=== PATIENT | male | born 1985 | race Caucasian/White ===

== ENCOUNTER 2023-01-02 15:22 | Emergency (ER) | payer OTHER, SELFPAY ==
--- NOTE | ~2023-01-02 | CT_ITS ---
EXAMINATION: CT HEAD WITHOUT CONTRAST CLINICAL INFORMATION: Left-sided headache COMPARISON: None TECHNIQUE: Imaging was performed from the skull base to vertex without intravenous administration of contrast. This CT examination was performed using dose optimization techniques as appropriate, variously including the following: *Automated exposure control *Adjustment of mA and/or kV according to patient size (this includes techniques or standardized protocols for targeted exams where dose is matched to indication/reason for exam; i.e. extremities or head) *Use of iterative reconstruction technique Total exam dose length product: 631 mGy-cm FINDINGS: No intra or extra-axial fluid collection, hemorrhage, or mass. No ventriculomegaly. No midline shift or herniation. Basal cisterns are patent. Fletcher-white matter differentiation is maintained. No territorial encephalomalacia. No significant volume loss. There is no abnormal attenuation within the brain parenchyma. No calvarial fracture or soft tissue abnormality. The mastoid air cells and visualized portions of the paranasal sinuses are well aerated. CT/CT head/brain wo IV con IMPRESSION: 1. No acute intracranial pathology.
--- NOTE | ~2023-01-02 | XR_ITS ---
EXAMINATION: XR CHEST CLINICAL INFORMATION: Left-sided chest pain COMPARISON: None TECHNIQUE: 2 views of the chest were obtained. FINDINGS: The lungs are clear. No airspace consolidation, pleural effusion, or pneumothorax. The cardiomediastinal silhouette is within normal limits. No acute osseous injury. XR/XR chest 2V IMPRESSION: No acute pulmonary process.
--- NOTE | 2023-01-02 15:32 | ECG_ITS ---
Test Reason : CHEST PAIN Blood Pressure : / mmHG Vent. Rate : 073 BPM Atrial Rate : 073 BPM P-R Int : 162 ms QRS Dur : 086 ms QT Int : 376 ms P-R-T Axes : 059 083 060 degrees QTc Int : 414 ms Normal sinus rhythm Nonspecific ST elevation anterior leads, possible early repolarization Borderline EKG No previous ECGs available Referred By: Hanna Segovia Electronically Signed By:RUBY DEE
[2023-01-02 15:45] VITALS: BP 156/88; PULSE 80; RESP 16; TEMP 36.7; O2SAT 97; BMI 25.8
--- NOTE | 2023-01-02 15:45 | ED_ITS ---
HPI - Chest Pain General Chief Complaint: General Medical Stated Complaint: chest pain x3 weeks, headache Time Seen by Provider: 01/02/23 17:32 Source: patient Mode of arrival: ambulatory Limitations: no limitations History of Present Illness HPI narrative: 37 yo male with no medical history, active smoker presents to the ER for evaluation of intermittent, non-radiating chest tightness on the left side for the last 3 weeks. He states the pain comes and goes, mostly in the left upper chest and sometimes the back. 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 Today while lifting a tote he had acute onset of left sided headache while at work. Has since improved significantly but not completely r esolved. No weakness, numbness, tingling. No SOB. MD complaint: chest pain and other (headache) Onset (ago): week(s) Timing of current episode: episodic Prior episodes: Yes Onset: during rest and during exertion Pain location: left chest Pain radiation: back Severity: moderate Quality: aching Relieving factors: nothing Exacerbating factors: nothing Treatment prior to arrival: none Risk Factors Coronary artery disease risk factors: smoking history Thoracic aortic dissection risk factors: none Related Data Allergies Allergy/AdvReac Type Severity Reaction Status Date / Time kiwi [KIWI] Allergy Severe ANAPHYLAXIS Unverified 01/02/23 15:54 kiwi Allergy Unknown Anaphylaxis Uncoded 01/02/23 15:54 Review of Systems Review of Systems: Yes all other systems are reviewed and are negative [facility] Family History Family History (Updated 09/28/20 @ 13:21 by Lyndsay Diaz, RMA, OCCUPATIONAL HEALTH NURSE) Father No problems noted. Mother COPD (chronic obstructive pulmonary disease) CVD (cardiovascular disease) Maternal Grandfather Throat cancer Smoker ETOH abuse Maternal Grandmother Cancer Paternal Grandfather Unknown family medical history Paternal Grandmother Unknown family medical history Brother No problems noted. Brother No problems noted. Sister No problems noted. Social History Social History Advance Directives: No Advance Directives Information Provided: No Physical Exam Vital Signs: Vital Signs: Last Vital Signs Temp 98.1 F 01/02/23 15:45 Pulse 80 01/02/23 15:45 Resp 16 01/02/23 15:45 BP 156/88 H 01/02/23 15:45 Pulse Ox 97 01/02/23 15:45 O2 Del Method 01/02/23 15:45 BMI result Body Mass Index 25.8 Appearance: Alert. Oriented X3. No acute distress. Eyes: Pupils equal, round and reactive to light. ENT: Pharynx normal. Neck: Normal inspection. Neck supple. CVS: Normal heart rate and rhythm. Pulses normal. Respiratory: No respiratory distress. Breath sounds normal. Skin: Skin warm and dry. Normal skin color. Normal skin turgor. No rashes. Extremities: No lower extremity edema. Neuro: Oriented X 3. No motor deficit. No sensory deficit. Course Course Course Narrative: 37 yo male with no medical problems, active smoker presents to the ER for evaluation of intermittent left sided chest pressures for the last few weeks, increasing frequency. Developed acute onset of sharp left sided headache when lifting today, described as the worse headache of his life. Not as intense now but still having headache on the left side. HR 80's, SPO2 98% with SBP 150s, no known hx. Will get EKG, labs, and CT head for further evaluation. Reevaluation(s) Reevaluation #1: Workup is unremarkable. Wants to go home. Stable for d/c - encouraged to follow up with PCP. Medical Decision Making Differential Diagnosis Differential Diagnoses: The differential diagnosis associated with the presentation includes muscular chest pain, atypical chest pain, PNA, PTX, ACS, PE doubt SAH/ICH Lab Data MDM Lab Attestation statement: I reviewed the patient's lab results. unremarkable 01/02/23 15:59 01/02/23 15:59 Labs: Lab Results 01/02/23 01/02/23 01/02/23 Range/Units 15:59 15:59 15:59 WBC 9.8 (4.8-10.8) X10*3/uL RBC 4.68 (4.60-5.80) X10*6/uL Hgb 15.3 (14.0-18.0) g/dl Hct 43.8 (42.0-52.0) % MCV 93.6 (80.0-98.0) fL MCH 32.7 (27.0-33.0) pg MCHC 34.9 (31.0-36.0) g/dl RDW 11.7 (11.0-16.0) % Plt Count 183 (160-400) X10*3/uL MPV 10.6 (9.4-12.4) fL Immature Gran % (Auto) 0.3 (0.0-0.4) % Neut % (Auto) 63.4 (45-73) % Lymph % (Auto) 28.8 (20-40) % [place] % (Auto) 5.6 (2-11) % Eos % (Auto) 1.2 (0-4) % Baso % (Auto) 0.7 (0-2) % Lymph # (Auto) 2.8 (1.2-4.9) X10*3/uL [place] # (Auto) 0.6 (0.1-1.2) X10*3/uL Eos # (Auto) 0.1 (0.0-0.4) X10*3/uL Baso # (Auto) 0.1 (0.0-0.2) X10*3/uL Abs Immat Gran (auto) 0.03 (0.00-0.03) X10*3/uL Absolute Neuts (auto) 6.2 (2.0-8.3) x10*3/uL Absolute Nucleated RBC 0.000 (0.0-0.012) X10*3/uL Nucleated RBC % (auto) 0.0 (0.0-0.2) /100WBC Sodium 140 (135-145) mmol/L Potassium 4.0 (3.3-5.1) mmol/L Chloride 105 (96-108) mmol/L Carbon Dioxide 27 (22-29) mmol/L Anion Gap 12 (12-20) BUN 13 (9-16) mg/dL Creatinine 0.87 (0.5-1.4) mg/dL Estim Creat Clear Calc 118.5 Estimated GFR > 60 Random Glucose 96 (60-115) mg/dL Calcium 9.3 (8.4-10.2) mg/dL Magnesium 1.9 (1.6-2.6) mg/dL Total Bilirubin 0.4 (0.0-1.0) mg/dL Direct Bilirubin < 0.2 (0.0-0.5) mg/dL AST 24 (5-37) U/L ALT 23 (0-40) U/L Alkaline Phosphatase 79 (39-117) U/L Troponin I High Sens < 3.5 (<3.5-35.0) ng/L Total Protein 6.8 (6.5-8.0) g/dL Albumin 4.5 (3.5-5.0) g/dL Independent Interpretation I performed an independent interpretation of an: EKG, Plain X-Ray and CT Scan Interpretation: EKG with normal sinus rhythm 73 bpm, nonspecific ST wave abnormality, normal [place] interval, normal QTc CXR clear, no focal infiltrates CT head unremarkable, no acute bleed Radiology Impression Discussion of test interpretation with radiology: I have reviewed the radiologist's reading. Radiologist Impression: CT/CT head/brain wo IV con IMPRESSION: 1. No acute intracranial pathology. ?XR/XR chest 2V IMPRESSION: No acute pulmonary process. Prescription Management I considered prescription management with: Pain Medication declined need for nsaids Critical Care Time Critical Care Time Critical Care Time: No Discharge Plan Discharge Clinical Impression: Atypical chest pain Patient Disposition: Home, Self-Care Instructions: Chest Wall Pain (ED) Additional Instructions: Your lab workup, CT scan, EKG and chest x-ray were all normal. Follow up with your PCP. If you develop new or worsening symptoms call 911 or come back to the ER for further evaluation. Interventions: ED Discharge Assessment Last Done: 01/02/23 17:32 Discharge Date/Time: 01/02/23 17:36
[2023-01-02 16:03] LABS: MANUAL DIFF FLAG NO
[2023-01-02 16:06] LABS: Basophils Absolute Auto 0.1 X10*3/uL (0.0-0.2); Basophils Percent Auto 0.7 % (0-2); Eosinophils Absolute Auto 0.1 X10*3/uL (0.0-0.4); Eosinophils Percent Auto 1.2 % (0-4); Hematocrit 43.8 % (42.0-52.0); Hemoglobin 15.3 g/dl (14.0-18.0); Imm Gran Abs Auto 0.03 X10*3/uL (0.00-0.03); Imm Gran Pct Auto 0.3 % (0.0-0.4); Lymphocytes Absolute Auto 2.8 X10*3/uL (1.2-4.9); Lymphocytes Percent Auto 28.8 % (20-40); Mean Corpuscular HGB Conc 34.9 g/dl (31.0-36.0); Mean Corpuscular Hemoglobin 32.7 pg (27.0-33.0); Mean Corpuscular Volume 93.6 fL (80.0-98.0); Mean Platelet Volume 10.6 fL (9.4-12.4); Monocytes Absolute Auto 0.6 X10*3/uL (0.1-1.2); Monocytes Percent Auto 5.6 % (2-11); Neutrophils Absolute Auto 6.2 x10*3/uL (2.0-8.3); Neutrophils Percent Auto 63.4 % (45-73); Platelet Count 183 X10*3/uL (160-400); Red Blood Count 4.68 X10*6/uL (4.60-5.80); Red Cell Distribution Width 11.7 % (11.0-16.0); White Blood Count 9.8 X10*3/uL (4.8-10.8)
[2023-01-02 16:20] LABS: Alanine Aminotransferase 23 U/L (0-40); Albumin Level 4.5 g/dL (3.5-5.0); Alkaline Phosphatase 79 U/L (39-117); Anion Gap 12 (12-20); Aspartate Amino Transferase 24 U/L (5-37); Bilirubin Direct < 0.2 mg/dL (0.0-0.5); Bilirubin Total 0.4 mg/dL (0.0-1.0); Blood Urea Nitrogen 13 mg/dL (9-16); Calcium 9.3 mg/dL (8.4-10.2); Carbon Dioxide 27 mmol/L (22-29); Chloride 105 mmol/L (96-108); Creatinine Clr Calc Pharmacy 118.5; Estimated Glomerular Filt Rate > 60; Glucose Random 96 mg/dL (60-115); Magnesium 1.9 mg/dL (1.6-2.6); Sodium 140 mmol/L (135-145); Total Protein 6.8 g/dL (6.5-8.0)
[2023-01-02 16:28] LABS: Troponin-I High Sensitivity < 3.5 ng/L (<3.5-35.0)
== END 2023-01-02 17:36 | disposition home or self-care (01) ==
LOC: HO.ED 17:35
PROVIDERS: Physician Assistant; Emergency Provider Emergency Medicine
DX: R51.9 Headache, unspecified (principal); R07.89 Other chest pain; Z79.899 Other long term (current) drug therapy
CPT/HCPCS: 36415; 70450; 71046; 80048; 80076; 83735; 84484; 85025; 93005; 99283; 99284

== ENCOUNTER 2023-06-11 12:41 | Outpatient (AMB) | payer OTHER, SELFPAY ==
[2023-06-11 12:45] VITALS: BP 106/82; PULSE 60; O2SAT 97; BMI 23.1
--- NOTE | 2023-06-11 12:45 | A.OFFPC_ITS ---
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 Allergies kiwi [KIWI] Allergy (Severe, Verified 06/11/23 12:46) ANAPHYLAXIS kiwi Allergy (Unknown, Uncoded 01/02/23 15:54) Anaphylaxis Medication List - Last Reconciled 06/11/23 by Ramírez Loera MD No Known Home Meds Tobacco use date assessed: 06/11/23 Dental Screening Dental Screen Date: 06/11/23 Did you have a dental visit in the last 12 months?: No Did you have a dental problem in the last 6 months where you did not have access to dental care?: No Was dental information given to patient?: No 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 He is complaining of pain left side of his forehead for the past few weeks. Patient says that he was seen in emergency room and had a CT scan done which was within normal limit. He does admit to grinding his teeth at night. We discussed mouth guard at night, and possibility of trigeminal neuralgia. I will book appointment with a neurologist, meanwhile he may take 1 ibuprofen with supper and see if that helps. He has not tried any medications for this problem. 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 Mother COPD (chronic obstructive pulmonary disease) CVD (cardiovascular disease) Maternal Grandfather Throat cancer Smoker ETOH abuse Maternal Grandmother Cancer Paternal Grandfather Unknown family medical history Paternal Grandmother Unknown family medical history Brother No problems noted. Brother No problems noted. Sister No problems noted. Social History Housing: House Patient Tobacco Use Status: Current everyday Tobacco user e-Cigarette/Vaping Use: Never Used Current occupational status: employed Cognitive needs: No Hearing needs: No Vision needs: No Questionnaire PHQ-9 Over the last 2 weeks, how often have you been bothered by any of the following problems? 96606 - PHQ-9 Billing: Patient declined-do not bill Source: Developed by Drs. Cr Drew, Justa Jaimes, Mike Reece and colleagues, with an educational brandt from [employer]. Thrive Questionnaire Date Thrive assessed: 06/11/23 I am a: Patient What is your living situation today?: I have a steady place to live Within the past 12 months, did the food you bought not last and you didn't have the money to get more?: Never true Within the past 12 months, did you worry whether your food would run out before you got money to buy more?: Never true Do you have trouble paying for medicines?: No Do you have trouble getting transportation to medical appointments?: Yes Do you have trouble paying your heating and electricity bill?: No Do you have trouble taking care of your child, family member or friend?: No Do you have trouble with day-to-day activities such as bathing, preparing meals, shopping, managing finances, etc.?: No Are you currently unemployed and looking for a job?: No Are you interested in more education?: No AUDIT C Alcohol Use Questionnaire (AUDIT-C) 1. How often do you have a drink containing alcohol?: 2-3 times a week 2. How many drinks containing alcohol do you have on a typical day when you are drinking?: 1 or 2 3. How often do you have six or more drinks on one occasion?: Never Total Score: 3 Score Reviewed/Action Taken: Yes NELLY-7 AMB Questionnaire NELLY-7 Date NELLY - 7 assessed: 06/11/23 Source: Developed by Drs. Cr Drew, Justa Jaimes, Mike Reece and colleagues, with an educational brandt from [employer]. NELLY-7 Assessment Billing NELLY-7 Assessment Tool: pt declined-do not bill Review of Systems Const Denies chills, Denies fever(s) and Denies headache(s) Eyes Denies blurry vision ENT Denies headache(s), Denies nasal discharge, Denies nasal obstruction, Denies odynophagia and Denies sinus pain Card Denies chest pain at rest and Denies chest pain with activity Resp Denies cough and Denies hemoptysis GI Denies diarrhea, Denies odynophagia, Denies vomiting and Denies hematemesis Reports as per HPI Musc Denies abnormal gait Skin/Breast Reports as per HPI Neuro Denies Neuro-related abnormal movements, Denies Abnormal speech present, Denies abnormal gait, Denies headache(s) and Denies Sensory deficit (Neuro) Psych Denies mood swings and Denies paranoia Endo Reports as per HPI Feliberto/Lymph Reports as per HPI Aller/Immun Reports as per HPI Physical exam (Primary Care) Vital Signs: Last Vital Signs Pulse 60 06/11/23 12:45 BP 106/82 06/11/23 12:45 Pulse Ox 97 06/11/23 12:45 Oxygen Delivery Method Room Air 06/11/23 12:45 BMI result Body Mass Index 23.1 Tobacco/Smoking Status: Tobacco use Status Tobacco use date assessed 06/11/23 06/11/23 12:49 Patient Tobacco Use Status Current everyday Tobacco 06/11/23 12:49 e-Cigarette/Vaping Use Never Used 06/11/23 12:49 Thrive Assessment: Date of Thrive Assessment Date Thrive assessed 06/11/23 06/11/23 13:17 Const General: cooperative, comfortable and no acute distress Orientation/consciousness: patient oriented x3 HENMT Head: Yes normocephalic and Yes atraumatic Eyes General: appearance normal, both eyes and all related structures Pupils: Equal, round and reactive pupils present EOM: EOMs intact bilaterally Neck Neck: Yes supple and No lymphadenopathy Thyroid: Thyroid normal Lymphatic: no lymphadenopathy noted Resp Effort & Inspection: normal respiratory effort and able to speak in complete sentences Auscultation: clear to auscultation bilaterally Cardio Heart sounds: S1 normal heart sound present and S2 normal heart sound present GI Palpation (GI): Soft to palpation and nontender Auscultation: normal bowel sounds General: Yes no CVA tenderness Back/Spine/Pelvis Back: no CVA tenderness Skin General skin exam: elasticity normal and turgor normal Neuro General: patient oriented x3 and gait normal Cranial nerves: Yes Equal, round and reactive pupils present Speech: No Abnormal speech present Sensory Exam: No Sensory deficit (Neuro) Coordination: tandem gait normal and Romberg test negative Extrem General: Yes normal exam except as noted and No edema Immunizations Boostrix Tdap Performing Provider: Ramírez Loera MD Administered by: Faith Marsh CMA on 06/11/23 13:12 Dose Route Admin Location Lot Number Expiration Date NDC Edger Machine Helper 0.5 mL IM Right Deltoid [id number] 08/21/25 [id number] Prism [employer] VIS Given Date VIS Provided VIS Publication Date 06/11/23 Single Vaccine 21 Eligibility Eligibility Date Funding Source Not [facility] Eligible 06/11/23 Private Assessment and Plan Assessment & Plan (1) Encounter for general adult medical examination with abnormal findings: Code(s): Z00.01 - Encounter for general adult medical examination with abnormal findings (2) Abnormal TSH: Code(s): R79.89 - Other specified abnormal findings of blood chemistry (3) Trigeminal neuralgia of left side of face: Code(s): G50.0 - Trigeminal neuralgia Plan 37-year-old gentleman came in today for physical exam is to initially. He is complaining of pain left side of his forehead for the past few weeks. Patient says that he was seen in emergency room and had a CT scan done which was within normal limit. He does admit to grinding his teeth at night. We discussed mouth guard at night, and possibility of trigeminal neuralgia. I will book appointment with a neurologist, meanwhile he may take 1 ibuprofen with supper and see if that helps. He has not tried any medications for this problem. And order placed to be done fasting Patient works with [employer], we have given him Tdap vaccine Physical exam 1 year Orders: Orders Comprehensive [place]. Panel Fast Today R79.89 - Other specified abnormal findings of blood chemistry, Z00.01 - Encounter for general adult medical examination with abnormal findings Lipid Panel Today R79.89 - Other specified abnormal findings of blood chemistry, Z00.01 - Encounter for general adult medical examination with abnormal findings TSH reflex Free T4 Today R79.89 - Other specified abnormal findings of blood chemistry, Z00.01 - Encounter for general adult medical examination with abnormal findings Complete Blood Count Auto Diff Today R79.89 - Other specified abnormal findings of blood chemistry, Z00.01 - Encounter for general adult medical examination with abnormal findings TDaP Immunization Today Z23 - Encounter for immunization Referrals Neurology Referral G50.0 - Trigeminal neuralgia Coding Level of Care Code New Pt Prev Care 18-39yr([id number] Diagnoses Encounter for general adult medical examination with abnormal findings Z00.01 Abnormal TSH R79.89 Trigeminal neuralgia of left side of face G50.0
== END 2023-06-11 13:13 | disposition home or self-care (01) ==
PROVIDERS: Visit Provider Internal Medicine
DX: Z00.00 Encounter for general adult medical examination without abnormal findings (principal); R79.89 Other specified abnormal findings of blood chemistry; G50.0 Trigeminal neuralgia; Z23 Encounter for immunization
CPT/HCPCS: 90471; 90715; 99385

== ENCOUNTER 2023-07-10 11:46 | Outpatient (REF) | payer OTHER, SELFPAY ==
[2023-07-10 13:22] LABS: MANUAL DIFF FLAG NO
[2023-07-10 13:43] LABS: Basophils Absolute Auto 0.1 X10*3/uL (0.0-0.2); Basophils Percent Auto 0.5 % (0-2); Eosinophils Absolute Auto 0.1 X10*3/uL (0.0-0.4); Hematocrit 44.1 % (42.0-52.0); Hemoglobin 15.7 g/dl (14.0-18.0); Imm Gran Abs Auto 0.05 X10*3/uL (0.00-0.03); Imm Gran Pct Auto 0.4 % (0.0-0.4); Lymphocytes Absolute Auto 3.2 X10*3/uL (1.2-4.9); Lymphocytes Percent Auto 23.7 % (20-40); Mean Corpuscular HGB Conc 35.6 g/dl (31.0-36.0); Mean Corpuscular Hemoglobin 32.4 pg (27.0-33.0); Mean Corpuscular Volume 91.1 fL (80.0-98.0); Mean Platelet Volume 11.7 fL (9.4-12.4); Monocytes Percent Auto 7.1 % (2-11); Neutrophils Absolute Auto 9.1 x10*3/uL (2.0-8.3); Neutrophils Percent Auto 67.3 % (45-73); Platelet Count 190 X10*3/uL (160-400); Red Blood Count 4.84 X10*6/uL (4.60-5.80); Red Cell Distribution Width 11.5 % (11.0-16.0); White Blood Count 13.5 X10*3/uL (4.8-10.8)
[2023-07-10 14:17] LABS: Alanine Aminotransferase 27 U/L (0-40); Albumin Level 4.4 g/dL (3.5-5.0); Alkaline Phosphatase 68 U/L (39-117); Anion Gap 12 (12-20); Aspartate Amino Transferase 35 U/L (5-37); Bilirubin Total 1.1 mg/dL (0.0-1.0); Blood Urea Nitrogen 9 mg/dL (9-16); Calcium 9.5 mg/dL (8.4-10.2); Carbon Dioxide 25 mmol/L (22-29); Chloride 102 mmol/L (96-108); Cholesterol 203 mg/dL (<200); Estimated Glomerular Filt Rate > 60; Glucose Fasting 89 mg/dL (60-99); HDL Cholesterol 60 mg/dL (>40); LDL Cholesterol Calculated 109 mg/dL (<100); Potassium 3.7 mmol/L (3.3-5.1); Sodium 135 mmol/L (135-145); Total Protein 7.2 g/dL (6.5-8.0); Triglycerides 173 mg/dL (<150)
[2023-07-10 16:29] LABS: Free T4 (Free Thyroxine) 0.87 ng/dL (0.71-1.85)
== END 2023-07-10 11:47 | disposition home or self-care (01) ==
LOC: HO.HMGCLDS 11:46
PROVIDERS: PCP Internal Medicine; Visit Provider Internal Medicine
DX: Z00.01 Encounter for general adult medical examination with abnormal findings (principal); R79.89 Other specified abnormal findings of blood chemistry
CPT/HCPCS: 36415; 80053; 80061; 84439; 84443; 85025

== ENCOUNTER 2023-07-17 13:55 | Outpatient (REF) | payer OTHER, SELFPAY ==
--- NOTE | ~2023-07-17 | US_ITS ---
EXAMINATION: US THYROID CLINICAL INFORMATION: Thyrotoxicosis, unspecified without thyrotoxic crisis or storm. COMPARISON: None available. TECHNIQUE: Linear transducer grayscale and color Doppler examination with attention to the region of the thyroid. FINDINGS: SIZE: Measurements of the thyroid lobes and nodules are given in sagittal, anteroposterior and transverse dimensions respectively. Right Thyroid Lobe: 5.6 x 1.7 x 2.4 cm, volume 11.4 mL. Parenchyma: The gland echotexture is homogeneous. Thyroid vascularity is minimally increased. Left Thyroid Lobe: 5.6 x 1.3 x 1.7 cm, volume 6.7 mL. Parenchyma: The gland echotexture is homogeneous. Thyroid vascularity is minimally increased. Isthmus: 0.41 cm in maximum AP dimension. No focal thyroid nodule is seen. NODES: No lymphadenopathy is seen in the tissue surrounding the thyroid gland. US/US thyroid IMPRESSION: Minimally hypervascular thyroid which can be seen in the setting of thyroiditis. ACR TI-RADS RECOMMENDATION REFERENCE: Ultrasound-guided fine-needle aspiration, followup ultrasound, no further follow up. * TR1 (0 point) and TR2 (2 points): No FNA or follow up. * TR3 (3 points): FNA if more than or equal to 2.5 cm in maximum dimension, followup ultrasound in 1, 3 and 5 years if 1.5 to 2.4 cm in maximum dimension. * TR4 (4-6 points): FNA if more than or equal to 1.5 cm in maximum dimension, followup ultrasound in 1, 2, 3 and 5 years if 1 to 1.4 cm in maximum dimension. * TR5 (more than or equal to 7 points): FNA if more than or equal to 1 cm in maximum dimension, followup ultrasound every year for 5 years if 0.5 to 0.9 cm in maximum dimension. * TR3, TR4 or TR5 nodules that are below the size threshold for followup receive no follow up.
== END 2023-07-17 13:56 | disposition home or self-care (01) ==
LOC: HO.HMGCX 13:55
PROVIDERS: PCP Internal Medicine; Visit Provider Internal Medicine
DX: E05.90 Thyrotoxicosis, unspecified without thyrotoxic crisis or storm (principal)
CPT/HCPCS: 76536

== ENCOUNTER 2024-04-03 13:30 | Outpatient (AMB) | payer SELFPAY ==
--- NOTE | 2024-04-03 13:35 | MHC.PC.OV ---
Vital Signs 04/03/24 13:43 Height 5 ft 9 in Weight 168 lb BMI 24.8 BP 120/80 Blood Pressure Location Rt brachial Position Sitting Pulse 64 Pulse Source Pulse Oximeter Pulse Oximetry (%) 100 Oxygen Delivery Method Room Air Intake Visit Reasons: RMV Forms~ Allergies kiwi [KIWI] Allergy (Severe, Verified 04/03/24 13:43) ANAPHYLAXIS kiwi Allergy (Unknown, Uncoded 04/03/24 13:43) Anaphylaxis Medication List - Last Reconciled 04/03/24 by Ramírez Loera MD No Known Home Meds Tobacco use date assessed: 04/03/24 Dental Screening Dental Screen Date: 04/03/24 HPI RMV Forms~ HPI Details Patient is a 38-year-old gentleman came in today to have RN be paperwork filled so he can get his license back Patient says that 2 years ago he had a incident in a bar where he was found to be threatening to another individual And had confrontation with police This is what the police report says which he has with him, however patient says that it is all alive Patient says that he already has been through court hearings and substance abuse evaluation. He takes no medications and has no physical handicap Paperwork filled He does not have insurance at this time, however he will have it on 11 of April and he will return in June for physical exam. [facility] Family History Father No problems noted. Mother COPD (chronic obstructive pulmonary disease) CVD (cardiovascular disease) Maternal Grandfather Throat cancer Smoker ETOH abuse Maternal Grandmother Cancer Paternal Grandfather Unknown family medical history Paternal Grandmother Unknown family medical history Brother No problems noted. Brother No problems noted. Sister No problems noted. Social History Housing: House Patient Tobacco Use Status: Current everyday Tobacco user e-Cigarette/Vaping Use: Never Used Current occupational status: employed Cognitive needs: No Hearing needs: No Vision needs: No Questionnaire Thrive Questionnaire Date Thrive assessed: 06/11/23 NELLY-7 AMB Questionnaire NELLY-7 Date NELLY - 7 assessed: 06/11/23 Source: Developed by Drs. Cr Drew, Justa Jaimes, Mike Reece and colleagues, with an educational brandt from [employer]. Review of Systems Const Denies chills and Denies fever(s) Neuro Reports no additional complaints Psych Reports no additional complaints Endo Reports no additional complaints Physical exam (Primary Care) Vital Signs: Last Vital Signs Pulse 64 04/03/24 13:43 BP 120/80 04/03/24 13:43 Pulse Ox 100 04/03/24 13:43 Oxygen Delivery Method Room Air 04/03/24 13:43 BMI result Body Mass Index 24.8 Tobacco/Smoking Status: Tobacco use Status Tobacco use date assessed 04/03/24 04/03/24 13:44 Patient Tobacco Use Status Current everyday Tobacco 04/03/24 13:36 e-Cigarette/Vaping Use Never Used 04/03/24 13:36 Thrive Assessment: Date of Thrive Assessment Date Thrive assessed 06/11/23 04/03/24 13:36 Const General: cooperative, comfortable and no acute distress Orientation/consciousness: patient oriented x3 HENMT Head: Yes normocephalic Eyes General: appearance normal, both eyes and all related structures Resp Effort & Inspection: normal respiratory effort, no cough and no stridor Cardio Rhythm: regular rhythm Heart sounds: S1 normal heart sound present and S2 normal heart sound present Skin General skin exam: turgor normal Neuro General: patient oriented x3, tone normal and moves all extremities Extrem Right lower extremity: no edema Left lower extremity: no edema Psych Appearance: grossly normal Mental Status: mental status grossly normal Speech and movement: Normal speech and movement present and Clear speech present Affect: normal affect Attitude: cooperative Thought process: Normal thought process present Thought content: Normal thought content present Insight: Good insight present (Psych) Judgement: Good judgement present (Psych) Assessment and Plan Assessment & Plan (1) Driving safety issue: Code(s): Z91.89 - Other specified personal risk factors, not elsewhere classified (2) Mood disorder: Code(s): F39 - Unspecified mood [affective] disorder Plan Patient is a 38-year-old gentleman came in today to have RN be paperwork filled so he can get his license back Patient says that 2 years ago he had a incident in a bar where he was found to be threatening to another individual And had confrontation with police This is what the police report says which he has with him, however patient says that it is all alive Patient says that he already has been through court hearings and substance abuse evaluation. He takes no medications and has no physical handicap Paperwork filled He does not have insurance at this time, however he will have it on 11 of April and he will return in June for physical exam. Coding Level of Care Code Est Pt Level 3 (88536) Diagnoses Driving safety issue Z91.89 Mood disorder F39
[2024-04-03 13:43] VITALS: BP 120/80; PULSE 64; O2SAT 100; BMI 24.8
== END 2024-04-03 16:12 | disposition home or self-care (01) ==
PROVIDERS: PCP Internal Medicine; Visit Provider Internal Medicine
DX: Z91.89 Other specified personal risk factors, not elsewhere classified (principal); F39 Unspecified mood [affective] disorder
CPT/HCPCS: 99080; 99213

== ENCOUNTER 2024-06-16 14:18 | Outpatient (AMB) | payer OTHER, SELFPAY ==
--- NOTE | 2024-06-16 14:20 | A.OFFPC_ITS ---
Vital Signs 06/16/24 14:22 Height 5 ft 9 in Weight 164 lb 8 oz BMI 24.3 BP 144/86 H Blood Pressure Location Rt brachial Position Sitting Pulse 86 Pulse Source Pulse Oximeter Pulse Oximetry (%) 96 Oxygen Delivery Method Room Air Intake Visit Reasons: Annual PE Allergies kiwi [KIWI] Allergy (Severe, Verified 06/16/24 14:21) ANAPHYLAXIS kiwi Allergy (Unknown, Uncoded 04/03/24 13:43) Anaphylaxis Medication List - Last Reconciled 06/16/24 by Ramírez Loera MD No Known Home Meds Tobacco use date assessed: 06/16/24 Dental Screening Dental Screen Date: 06/16/24 Did you have a dental visit in the last 12 months?: Yes Did you have a dental problem in the last 6 months where you did not have access to dental care?: No Was dental information given to patient?: Patient has dentist HPI Annual PE HPI Details Patient is 38 year old male came in today for physical exam Last year when labs his TSH level was low had ultrasound thyroid which showed hypervascularity of thyroid gland Patient was referred to Endocrinology where he was evaluated and was told that his thyroid is fine now He has not seen neurologist yet patient continued to have soreness left side of his pentecostalism area I also noticed that he is chewing gum upon further questioning he tells me that he chews gum all day because then he does not need to think about smoking He also provide his teeth at night We talked about the 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 He has appointment with Neurology coming up end September We will set up telephone visit after the labs to go over reports His blood pressure is slightly elevated today it was within normal limits in March we will continue to monitor. [facility] Family History Father No problems noted. Mother COPD (chronic obstructive pulmonary disease) CVD (cardiovascular disease) Maternal Grandfather Throat cancer Smoker ETOH abuse Maternal Grandmother Cancer Paternal Grandfather Unknown family medical history Paternal Grandmother Unknown family medical history Brother No problems noted. Brother No problems noted. Sister No problems noted. Social History Housing: House Patient Tobacco Use Status: Current everyday Tobacco user e-Cigarette/Vaping Use: Never Used service: No Current occupational status: employed Cognitive needs: No Hearing needs: No Vision needs: No Questionnaire PHQ-9 Over the last 2 weeks, how often have you been bothered by any of the following problems? 54682 - PHQ-9 Billing: Patient declined-do not bill Source: Developed by Drs. Cr Drew, Justa Jaimes, Mike Reece and colleagues, with an educational brandt from [employer]. Thrive Questionnaire Date Thrive assessed: 06/16/24 I am a: Patient What is your living situation today?: I have a steady place to live Within the past 12 months, did the food you bought not last and you didn't have the money to get more?: Never true Within the past 12 months, did you worry whether your food would run out before you got money to buy more?: Never true Do you have trouble paying for medicines?: No Do you have trouble getting transportation to medical appointments?: No Do you have trouble paying your heating and electricity bill?: No Do you have trouble taking care of your child, family member or friend?: No Do you have trouble with day-to-day activities such as bathing, preparing meals, shopping, managing finances, etc.?: No Are you currently unemployed and looking for a job?: No Are you interested in more education?: No Please select the resources that you would like help with: None Currently or been in a relationship where the following occur: No concerns reported and I choose not to answer THRIVE Score: 0 AUDIT C Alcohol Use Questionnaire (AUDIT-C) 1. How often do you have a drink containing alcohol?: 2-3 times a week 2. How many drinks containing alcohol do you have on a typical day when you are drinking?: 1 or 2 3. How often do you have six or more drinks on one occasion?: Never Total Score: 3 Score Reviewed/Action Taken: Yes NELLY-7 AMB Questionnaire NELLY-7 Date NELLY - 7 assessed: 06/16/24 Feeling nervous, anxious, or on edge: 0 = Not at all Not being able to stop or control worryin = Not at all Worrying too much about different things: 0 = Not at all Trouble relaxin = Not at all Being so restless that it is hard to sit still: 0 = Not at all Becoming easily annoyed or irritable: 0 = Not at all Feeling afraid as if something awful might happen: 0 = Not at all Total NELLY-7 score (0-4 normal; 5-9 mild; 10-14 moderate; 15-21 severe): 0 Source: Developed by Drs. Cr Drew, Justa Jaimes, Mike Reece and colleagues, with an educational brandt from [employer]. NELLY-7 Assessment Billing NELLY-7 Assessment Tool: NELLY-7 Assessment 59467 Review of Systems Const Denies chills, Denies fever(s) and Denies headache(s) Eyes Denies blurry vision ENT Denies headache(s), Denies nasal discharge, Denies nasal obstruction, Denies odynophagia and Denies sinus pain Card Denies chest pain at rest and Denies chest pain with activity Resp Denies cough and Denies hemoptysis GI Denies diarrhea, Denies odynophagia, Denies vomiting and Denies hematemesis Reports as per HPI Musc Denies abnormal gait Skin/Breast Reports as per HPI Neuro Denies Neuro-related abnormal movements, Denies Abnormal speech present, Denies abnormal gait, Denies headache(s) and Denies Sensory deficit (Neuro) Psych Denies mood swings and Denies paranoia Endo Reports as per HPI Feliberto/Lymph Reports as per HPI Aller/Immun Reports as per HPI Physical exam (Primary Care) Vital Signs: Last Vital Signs Pulse 86 06/16/24 14:22 BP 144/86 H 06/16/24 14:22 Pulse Ox 96 06/16/24 14:22 Oxygen Delivery Method Room Air 06/16/24 14:22 BMI result Body Mass Index 24.3 Tobacco/Smoking Status: Tobacco use Status Tobacco use date assessed 06/16/24 06/16/24 14:23 Patient Tobacco Use Status Current everyday Tobacco 06/16/24 14:23 e-Cigarette/Vaping Use Never Used 06/16/24 14:23 Thrive Assessment: Date of Thrive Assessment Date Thrive assessed 06/16/24 06/16/24 14:25 Currently or been in a relationship where the following occur: No concerns reported and I choose not to answer Const General: cooperative, comfortable and no acute distress Orientation/consciousness: patient oriented x3 HENMT Head: Yes normocephalic and Yes atraumatic Eyes General: appearance normal, both eyes and all related structures Pupils: Equal, round and reactive pupils present EOM: EOMs intact bilaterally Neck Neck: Yes supple and No lymphadenopathy Thyroid: Thyroid normal Lymphatic: no lymphadenopathy noted Resp Effort & Inspection: normal respiratory effort and able to speak in complete sentences Auscultation: clear to auscultation bilaterally Cardio Heart sounds: S1 normal heart sound present and S2 normal heart sound present GI Palpation (GI): Soft to palpation and nontender Auscultation: normal bowel sounds General: Yes no CVA tenderness Back/Spine/Pelvis Back: no CVA tenderness Skin General skin exam: elasticity normal and turgor normal Neuro General: patient oriented x3 and gait normal Cranial nerves: Yes Equal, round and reactive pupils present Speech: No Abnormal speech present Sensory Exam: No Sensory deficit (Neuro) Coordination: tandem gait normal and Romberg test negative Extrem General: Yes normal exam except as noted and No edema Assessment and Plan Assessment & Plan (1) Encounter for general adult medical examination with abnormal findings: Code(s): Z00.01 - Encounter for general adult medical examination with abnormal findings (2) 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 - Other specified disorders of temporomandibular joint (3) Tobacco use disorder: Code(s): F17.200 - Nicotine dependence, unspecified, uncomplicated Plan Patient is 38 year old male came in today for physical exam Last year when labs his TSH level was low had ultrasound thyroid which showed hypervascularity of thyroid gland Patient was referred to Endocrinology where he was evaluated and was told that his thyroid is fine now He has not seen neurologist yet patient continued to have soreness left side of his pentecostalism area I also noticed that he is chewing gum upon further questioning he tells me that he chews gum all day because then he does not need to think about smoking He also provide his teeth at night We talked about the 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 He has appointment with Neurology coming up end September We will set up telephone visit after the labs to go over reports His blood pressure is slightly elevated today it was within normal limits in March we will continue to monitor. Orders: Orders Complete Blood Count Auto Diff Today E05.90 - Thyrotoxicosis, unspecified without thyrotoxic crisis or storm, Z00.01 - Encounter for general adult medical examination with abnormal findings Comprehensive Berkey. Panel Fast Today E05.90 - Thyrotoxicosis, unspecified without thyrotoxic crisis or storm, Z00.01 - Encounter for general adult medical examination with abnormal findings Lipid Panel Today E05.90 - Thyrotoxicosis, unspecified without thyrotoxic c risis or storm, Z00.01 - Encounter for general adult medical examination with abnormal findings TSH reflex Free T4 Today E05.90 - Thyrotoxicosis, unspecified without thyroto xic crisis or storm, Z00.01 - Encounter for general adult medical examination with abnormal findings Coding Level of Care Code Est Pt Level 3 (06801) Est Pt Prev Care 18-39y(97370) Diagnoses Encounter for general adult medical examination with abnormal findings Z00.01 TMJ derangement M26.69 Tobacco use disorder F17.200 Additional Codes NELLY-7 Assessment Billing - NELLY-7 Assessment Tool: NELLY-7 Assessment 39276 ([id number])
[2024-06-16 14:22] VITALS: BP 144/86; PULSE 86; O2SAT 96; BMI 24.3
== END 2024-06-16 14:46 | disposition home or self-care (01) ==
LOC: HO.HMGC 14:18
PROVIDERS: PCP Internal Medicine; Visit Provider Internal Medicine
DX: Z00.00 Encounter for general adult medical examination without abnormal findings (principal); M26.69 Other specified disorders of temporomandibular joint; F17.210 Nicotine dependence, cigarettes, uncomplicated
CPT/HCPCS: 99395